=== PATIENT | female | born 1985 | race Caucasian/White ===

== ENCOUNTER 2018-12-29 18:24 | Emergency (ER) | payer OTHER ==
[~2018-12-29] VITALS: Ht 167.6 cm; Wt 57.6 kg
== END 2018-12-29 21:49 | disposition home or self-care (01) ==
LOC: ER 18:24
DX: N93.8 Other specified abnormal uterine and vaginal bleeding (principal); N83.292 Other ovarian cyst, left side; Z33.1 Pregnant state, incidental

== ENCOUNTER 2019-01-03 10:52 | Outpatient (CLI) | payer OTHER | END 2019-01-03 10:58 | disposition home or self-care (01) | LOC: LAB 10:52 | DX: I89.8 Other specified noninfective disorders of lymphatic vessels and lymph nodes (principal) ==

== ENCOUNTER 2019-01-11 09:47 | Outpatient (CLI) | payer OTHER | END 2019-01-11 10:03 | disposition home or self-care (01) | LOC: LAB 09:47 | DX: Z34.81 Encounter for supervision of other normal pregnancy, first trimester (principal) ==

== ENCOUNTER 2019-01-25 12:10 | Outpatient (CLI) | payer OTHER | END 2019-01-25 13:14 | disposition home or self-care (01) | LOC: LAB 12:10 | DX: O00.00 Abdominal pregnancy without intrauterine pregnancy (principal) ==

== ENCOUNTER 2025-05-08 06:14 | Day surgery (SDC) | payer OTHER ==
[2025-05-07 10:56] LABS: BASO % 0.6 % (0.1-1.2); EOS # 0.19 (0.04-0.54); EOS % 2.0 % (0.7-7.0); LYMPH # 2.14 (1.18-3.74); LYMPH % 22.8 % (19.3-53.1); MEAN PLATELET VOLUME 10.20 fl (9.4-12.4); MONO # 0.58 (0.24-0.82); MONO % 6.2 % (4.7-12.5); NEUT # 6.38 (1.56-6.13); NEUT % 68.1 % (34.0-71.1); RED CELL DISTRIBUTION WIDTH 12.7 % (11.6-14.4)
[2025-05-07 11:23] LABS: INR 0.98
[2025-05-07 11:40] LABS: ALT/SGPT 18.0 U/L (12-78); AST/SGOT 8.0 U/L (15-37); BILIRUBIN TOTAL 0.48 mg/dL (0.3-1.2); BUN CREA RATIO 18.0 (7.0-25.0); CREATININE SERUM 0.49 mg/dL (0.55-1.02); GFR 141.34; GLOBULINA 3.3 G/DL (2.4-3.5); GLUCOSE FASTING 77.0 mg/dL (65-100); OSMOLALITY SERUM 277.0 MOSM/KG (275-295)
[2025-05-07 13:01] LABS: RH POSITIVE
[2025-05-08] MEDS ORDERED: MORPHINE SULFATE 4 MG/ML VIAL IV PRN (13:45)
[2025-05-08] MEDS ORDERED: PROMETHAZINE HCL 50 MG/ML AMPUL IM ONE (13:45)
[2025-05-08] MEDS ORDERED: CEFAZOLIN SODIUM 1,000 MG VIAL IV ONE (14:00)
== END 2025-05-08 17:20 | disposition home or self-care (01) ==
LOC: CIR.AMB 06:14
PROVIDERS: ATTEND Obstetrics & Gynecology
DX: O02.1 Missed abortion (principal); Z91.013 Allergy to seafood